=== PATIENT | female | born 1980 | race Caucasian/White ===

== ENCOUNTER 2023-06-16 12:04 | Emergency (ER) | payer OTHER, SELFPAY ==
--- NOTE | 2023-06-16 12:13 | ED.EYEPROB ---
HPI - Eye Problem General Chief complaint: Eye Problems Stated complaint: left eye irritated Time Seen by Provider: 06/16/23 12:06 Source: patient Mode of arrival: ambulatory Limitations: no limitations History of Present Illness HPI Narrative: Nicole is a 42-year-old female patient presenting to clinic today with complaints of left eye irritation and watering. She reports symptoms just started at 6:00 a.m. this morning. Does wear contacts. Did take her contacts out this morning. Feels as though her left eye is scratched and is having sensitivity to light. Related Data Home Medications Medication Instructions Recorded Confirmed norgestimate-ethinyl estradiol 1 tablet PO DAILY 06/16/23 06/16/23 0.18 mg/0.215mg/0.25mg-35 mcg(28)tablet (Tri-Sprintec (28)) Allergies Allergy/AdvReac Type Severity Reaction Status Date / Time sulfamethoxazole Allergy Mild hives Verified 06/16/23 12:06 trimethoprim Allergy Mild hives Verified 06/16/23 12:06 Cephalosporins Allergy Unknown hives Verified 06/16/23 12:06 Sulfa (Sulfonamide Allergy Unknown hives Verified 06/16/23 12:06 Antibiotics) Review of Systems Review of Systems: Pertinent positives per HPI. Patient denies any fever, chills, rash, headache, visual changes, dizziness, cough, runny nose, sore throat, shortness of breath, chest pain, palpitations, nausea, vomiting, diarrhea, constipation, abdominal pain, or any urinary issues. PMFSH Comments At the time of my signature, I reviewed and agree with the nursing past medical, surgical, social, and family history. There is no relevant family history pertinent to the patient complaint. Exam Narrative: General: Well-developed, well nourished, in no apparent distress Head: Normocephalic, atraumatic Eyes: Pupils equally round and reactive to light bilaterally, EOM intact, right sclera and conjunctive clear, left sclera and conjunctiva injected, yellow discharge, lids normal Ears: TMs intact and clear, ear canals clear, no drainage, grossly hearing normal. Nose: Nares patent, no discharge, no inflammation, no sinus tenderness. Mouth: Oropharynx without lesions or masses, good dentition, MMM. Neck: Supple, trachea midline, no enlargement of anterior or posterior cervical nodes, no thyroid masses or goiter palpable. Cardio: Regular rate and rhythm, s1 and s2 normal, no murmur appreciated. Resp: Clear to auscultation bilaterally anteriorly and posteriorly, no rhonchi, rales, wheezing or rubs Course Course Emergency Course: Portions of this record may have been created with voice recognition software. Level of Care: Express Care Visit Vital Signs Vital signs: Vital signs reviewed Procedures Other Procedure Procedure 1: Other Procedure: Verbal consent was obtained for Wood's lamp exam. Two drops topical anesthetic was instilled with good anesthesia (tetracaine). Fluorescein stain of the left eye was performed without uptake of dye. No epithelial defect was noted. NO FB, ulcer or dendritic lesions. Upper lid was everted and no FB or lesions were noted. NO Alessandra sign. Normal saline irrigation eye solution was performed and the patient tolerated the procedure well, no adverse reaction or complications. Patient tolerated well. MDM - Eye Problem MDM Narrative Medical decision making narrative: At the time of visit patient is resting comfortably on the exam table. Wood's lamp exam was performed and is negative for any sign of corneal abrasion to the left eye. I suspect patient may have conjunctivitis. Patient does wear contacts. Will send in prescription for ofloxacin eyedrops. Supportive measures were discussed with the patient she voiced understanding the discharge instructions and agrees to treatment plan. Return precautions were reviewed Differential Diagnosis Differential diagnosis: Likely corneal abrasion, conjunctivitis, periorbital cellulitis, glaucoma, corneal ulcer, ruptured globe and ot
[2023-06-16 12:15] VITALS: BP 117/60; PULSE 81; RESP 18; TEMP 36.7; O2SAT 100
== END 2023-06-16 12:45 | disposition home or self-care (01) ==
PROVIDERS: Emergency Provider Nurse Practitioner Family
DX: H10.9 Unspecified conjunctivitis (principal)
CPT/HCPCS: 99213; A9270; G0463